=== PATIENT | male | born 1955 | race Caucasian/White ===

== ENCOUNTER 2017-08-31 05:57 | Day surgery (SDC) | payer OTHER ==
[2017-08-27 16:05] LABS: BASOPHIL % 0.6 % (0-2); RED CELL DISTRIBUTION WIDTH 13.5 % (11.5-14.5)
[2017-08-27 16:15] LABS: ALBUMIN 3.6 g/dL (3.4-5.0); ALKALINE PHOSPHATASE 73 U/L (46-116); ALT/SGPT 24 U/L (16-63); AST/SGOT 29 U/L (15-37); BILIRUBIN TOTAL 0.46 mg/dL (0.20-1.00); CALCIUM 8.3 mg/dL (8.5-10.1); CARBON DIOXIDE 28.1 mmol/L (21-32); CHLORIDE SERUM 110 mmol/L (98-107); CREATININE SERUM 0.9 mg/dL (0.7-1.3); GFR1 > 60 mL/min; GLUCOSE SERUM 104 mg/dL (74-106); POTASSIUM SERUM 4.2 mmol/L (3.5-5.1); SODIUM SERUM 144 mmol/L (136-145)
[2017-08-27 17:05] LABS: PLATELET COUNT 173 x10^3mcL (130-400)
[~2017-08-31] VITALS: Ht 162.6 cm; Wt 52.6 kg
[2017-08-31 06:10] VITALS: BP 121/78
[2017-08-31 10:02] VITALS: BP 125/59
== END 2017-08-31 09:55 | disposition home or self-care (01) ==
LOC: DS 05:57 → OR 07:30 → DS 07:30
PROVIDERS: Ophthalmology
PROC: 08RK3JZ Replacement of Left Lens with Synthetic Substitute, Percutaneous Approach (ICD-10-PCS; principal; 2017-08-31 07:30)
DX: H25.22 Age-related cataract, morgagnian type, left eye (principal); F17.210 Nicotine dependence, cigarettes, uncomplicated
CPT/HCPCS: C1780; J2001; J2250; J3010; J7040